=== PATIENT | male | born 1990 | race Caucasian/White ===

== ENCOUNTER 2018-01-30 07:40 | Emergency (ER) | payer BC ==
--- NOTE | 2018-01-30 07:47 | ER Report ---
History and Physical Time Seen By MD: 07:47 HPI/ROS CHIEF COMPLAINT: Dental pain HISTORY OF PRESENT ILLNESS: Left 1st mandibular molar pain. She was seen by a dentist earlier this week for dental pain. Has an infected tooth that needs to be removed which is now scheduled for this coming Thursday. Patient had been doing well on Motrin and tramadol and penicillin until today now having severe pain in the he is requesting a dental block. Allergies: Coded Allergies: No Known Drug Allergies (Unverified , 01/30/18) Home Meds Active Scripts Hydrocodone Bit/Acetaminophen (HYDROCODON-ACETAMINOPHEN 5-325) 1 Each Tablet, 1- 2 EACH PO Q4-6H Y for PAIN, #15 TAB 0 Refills TAKE ONE TABLET BY MOUTH EVERY 4-6 HOURS NEEDED FOR PAIN Prov:GISELLE KAISER MD 01/30/18 Reported Medications Tramadol Hcl (TRAMADOL HCL) 50 Mg Tablet, 1-2 TAB PO Q8-12H 01/30/18 Penicillin V Potassium 500 Mg Tab (PENICILLIN V POTASSIUM 500 MG TAB) 500 Mg Tablet, Q6H 01/30/18 Past Medical/Surgical History Noncontributory Constitutional Vital Sign - Last 24 Hours 01/30/18 01/30/18 07:40 08:06 Temp 97.5 Pulse 87 80 Resp 16 16 B/P (MAP) 151/94 150/87 (108) Pulse Ox 94 95 O2 Delivery Room Air Room Air Physical Exam General Appearance: Alert, no distress. ENT, Mouth: Ears: Tympanic membranes are normal. Nose: No bleeding. Mouth: Mucous membranes are moist. Throat: No erythema or exudates there is no tonsillar hypertrophy and uvula is midline. Teeth/gums: No evidence of dental abscess. Medical Decision Making ED Course/Re-evaluation ED Course 01/30/2018 8:06:14 am a left inferior alveolar dental block was performed using 2 mL of 0.5% bupivicaine. Decision to Disposition Date: Jan 30, 2018 Decision to Disposition Time: 08:06 Depart Departure Latest Vital Signs Vital Signs Date Time Temp Pulse Resp B/P (MAP) Pulse Ox O2 Delivery O2 Flow Rate FiO2 01/30/18 08:06 80 16 150/87 (108) 95 Room Air 01/30/18 07:40 97.5 Impression: Primary Impression: Pain, dental Condition: Improved Disposition: HOME OR SELF-CARE New Scripts Oxycodone Hcl/Acetaminophen (PERCOCET 5-325 MG TABLET) 1 Each Tablet 1-2 EACH PO Q6H for PAIN, #15 TAB 0 Refills Prov: GISELLE KAISER MD 01/30/18 Patient Instructions: Toothache (ED) Additional Instructions: Continue penicillin as directed Follow up with your dentist this Thursday for dental extraction Discontinue use of tramadol Use Lortab in place of tramadol for pain GISELLE KAISER MD Jan 30, 2018 07:47
[2018-01-30] MEDS ORDERED: TRAM-420 PO (07:50)
[2018-01-30] MEDS ORDERED: PENI-24 (07:50)
[2018-01-30 08:06] VITALS: BP 150/87
[2018-01-30] MEDS ORDERED: LOR5/325 PO (08:07)
[2018-01-30] MEDS ORDERED: OXYC-865 PO (08:23)
== END 2018-01-30 08:20 | disposition home or self-care (01) ==
LOC: ER 07:47
DX: K08.89 Other specified disorders of teeth and supporting structures (principal)
CPT/HCPCS: 99282

== ENCOUNTER 2018-02-01 17:58 | Emergency (ER) | payer BC ==
[~2018-02-01 17:58] MED LIST: LOR5/325 PO; OXYC-865 PO; PENI-24; TRAM-420 PO
[2018-02-01 18:02] VITALS: BP 153/94
--- NOTE | 2018-02-01 18:12 | ER Report ---
History and Physical Time Seen By MD: 18:10 Hx. of Stated Complaint: pt reports dental pain. appt moved to tomorrow at 1030, pt reports dental block was best HPI/ROS CHIEF COMPLAINT: Dental pain HISTORY OF PRESENT ILLNESS: This is a 27-year-old male who presents to the emergency department for dental pain. Patient was seen here last Thursday for dental pain and was given a dental block. Patient did have an appointment with his dentist today however they canceled and the pain returned this afternoon. Patient states he called his dentist they did get him a follow-up appointment next week he called again and he was upset about the cancellation today and they did manage to squeeze him in tomorrow for a root canal. Patient states he just wants a dental block again. Patient's saying that it is the 1st molar on the lower left side. He had a crown that cracked and now is infected. Patient denies aches, chills, nausea, vomiting, diarrhea, chest pain, shortness of breath. REVIEW OF SYSTEMS: Respiratory: No cough, no dyspnea. Cardiovascular: No chest pain, no palpitations. Gastrointestinal: No vomiting, no abdominal pain. Musculoskeletal: No back pain. Dental: As above. Allergies: Coded Allergies: No Known Drug Allergies (Unverified , 02/01/18) Home Meds Active Scripts Oxycodone Hcl/Acetaminophen (PERCOCET 5-325 MG TABLET) 1 Each Tablet, 1-2 EACH PO Q6H for PAIN, #15 TAB 0 Refills Prov:GISELLE KASIER MD 01/30/18 Reported Medications Penicillin V Potassium 500 Mg Tab (PENICILLIN V POTASSIUM 500 MG TAB) 500 Mg Tablet, Q6H 01/30/18 Discontinued Reported Medications Tramadol Hcl (TRAMADOL HCL) 50 Mg Tablet, 1-2 TAB PO Q8-12H 01/30/18 Discontinued Scripts Hydrocodone Bit/Acetaminophen (HYDROCODON-ACETAMINOPHEN 5-325) 1 Each Tablet, 1- 2 EACH PO Q4-6H Y for PAIN, #15 TAB 0 Refills TAKE ONE TABLET BY MOUTH EVERY 4-6 HOURS NEEDED FOR PAIN Prov:GISELLE KAISER MD 01/30/18 Past Medical/Surgical History Patient has a past medical and surgical history of hypertension, no medications , root canal. Reviewed Nurses Notes: Yes Constitutional Vital Sign - Last 24 Hours 02/01/18 18:02 Temp 98.9 Pulse 76 Resp 16 B/P (MAP) 153/94 Pulse Ox 93 O2 Delivery Room Air Physical Exam General Appearance: The patient is alert, has no immediate need for airway protection and no current signs of toxicity. Eyes: Pupils equal and round no injection. Dental: No obvious dental fracture, caries or poor dentition. Patient does have fillings noted. No inflammation along the gumline. Respiratory: Chest is non tender, lungs are clear to auscultation. Cardiac: regular rate and rhythm, no murmurs, clicks or rubs. Gastrointestinal: Abdomen is soft and non tender, no masses, bowel sounds normal. Musculoskeletal: Neck: Neck is supple and non tender. Extremities have full range of motion and are non tender. Skin: No rashes or lesions. DIFFERENTIAL DIAGNOSIS: After history and physical exam differential diagnosis was considered for dental infection and dental abscess. Medical Decision Making ED Course/Re-evaluation ED Course The patient was admitted to room. A history and physical were obtained. Frontal diagnoses were considered. After examination of the patient and discussing his follow-up dental appointment we elected to go ahead and do a dental block. I did go ahead and do an inferior alveolar nerve block using 1ml of 0.5% bupivacaine. The patient tolerated well. Patient does have a follow-up appointment tomorrow with his dentist for a root canal. Patient had no other questions or concerns at this time and was discharged home. Patient was in agreement with his care. Decision to Disposition Date: Feb 01, 2018 Decision to Disposition Time: 19:22 Depart Departure Latest Vital Signs Vital Signs Date Time Temp Pulse Resp B/P (MAP) Pulse Ox O2 Delivery O2 Flow Rate FiO2 02/01/18 18:02 98.9 76 16 153/94 93 Room Air Impression: Primary Impression: Pain, dental Condition: Improved Disposition: HOME OR SELF-CARE Referrals: DEONTE YANG MD (PCP) Patient Instructions: Dental Caries (ED) Additional Instructions: Drink plenty of fluids. Get plenty of rest. Follow-up with your dentist tomorrow as scheduled. Follow-up with your primary care provider as needed. May return to the emergency department for any other concerns or worsening symptoms. VETO MARSHALL [employer] Feb 01, 2018 18:12
== END 2018-02-01 19:36 | disposition home or self-care (01) ==
LOC: ER 18:19
DX: K08.89 Other specified disorders of teeth and supporting structures (principal)
CPT/HCPCS: 64400; 99282; D9110

== ENCOUNTER → 2018-04-03 | Outpatient (CLI) | payer BC | LOC: RESP 20:59 | PROVIDERS: ATTEND Family Medicine | DX: Z00.00 Encounter for general adult medical examination without abnormal findings (principal); R40.0 Somnolence; G47.33 Obstructive sleep apnea (adult) (pediatric); G47.36 Sleep related hypoventilation in conditions classified elsewhere; E66.9 Obesity, unspecified ==

== ENCOUNTER 2018-07-25 17:06 | Emergency (ER) | payer BC ==
--- NOTE | 2018-07-25 17:12 | ER Report ---
History and Physical Time Seen By MD: 17:12 HPI/ROS CHIEF COMPLAINT: Shortness of breath HISTORY OF PRESENT ILLNESS: 28-year-old male patient presents to emergency room with complaint of shortness of breath. Patient states that this started mayi roximately one hour prior to arrival in the emergency room. Patient states that there is nothing seems with shortness breath better or worse. Patient states that he is in the process of quitting smoking. He states that he started Chantix this morning. He states that when this started he was not actively doing anything, but was lying on the bed watching TV. Patient states there is nothing seems to make the shortness of breath better or worse. He has not taken any medication for this. REVIEW OF SYSTEMS: Respiratory: As noted above Cardiovascular: No chest pain, no palpitations. Gastrointestinal: No vomiting, no abdominal pain. Musculoskeletal: No back pain. Allergies: Coded Allergies: No Known Drug Allergies (Unverified , 07/25/18) Home Meds Reported Medications Varenicline Tartrate (CHANTIX) 0.5 Mg Tab, 0.5 MG PO QDAY, TAB 07/25/18 Losartan Potassium (LOSARTAN POTASSIUM) 25 Mg Tablet, 25 MG PO QDAY 07/25/18 Discontinued Reported Medications Penicillin V Potassium 500 Mg Tab (PENICILLIN V POTASSIUM 500 MG TAB) 500 Mg Tablet, Q6H 01/30/18 Discontinued Scripts Oxycodone Hcl/Acetaminophen (PERCOCET 5-325 MG TABLET) 1 Each Tablet, 1-2 EACH PO Q6H for PAIN, #15 TAB 0 Refills Prov:GISELLE KAISER MD 01/30/18 Past Medical/Surgical History Patient has a past medical history of hypertension, sleep apnea. Patient denies any surgical history. Reviewed Nurses Notes: Yes Constitutional Vital Sign - Last 24 Hours 07/25/18 07/25/18 07/25/18 07/25/18 17:09 17:15 17:30 17:59 Temp 98.4 Pulse 98 102 92 Resp 24 14 19 B/P (MAP) 152/93 150/77 (101) 136/79 (98) Pulse Ox 100 99 100 O2 Delivery Room Air 07/25/18 07/25/18 07/25/18 07/25/18 18:00 18:15 18:20 18:30 Pulse 75 75 81 Resp 15 20 23 B/P (MAP) 134/88 (103) Pulse Ox 96 96 97 07/25/18 07/25/18 07/25/18 07/25/18 18:35 18:50 19:00 19:05 Pulse ??? 67 ??? Resp 12 B/P (MAP) 130/80 (97) Pulse Ox 93 Physical Exam General Appearance: The patient is alert, has no immediate need for airway protection and no current signs of toxicity. Respiratory: Chest is non tender, lungs are clear to auscultation. Cardiac: regular rate and rhythm Gastrointestinal: Abdomen is soft and non tender, no masses, bowel sounds normal. Musculoskeletal: Neck: Neck is supple and non tender. Extremities have full range of motion and are non tender. Skin: No rashes or lesions. DIFFERENTIAL DIAGNOSIS: After history and physical exam differential diagnosis was considered for shortness of breath including but not limited to pulmonary infectious process, COPD, asthma, pulmonary embolus and congestive heart failure. Included in the differential is anxiety. Medical Decision Making Data Points Result Diagram: 07/25/18 1716 07/25/18 1716 Laboratory Hematology Test 07/25/18 17:16 Red Blood Count 5.55 M/uL (4.00-5.60) Mean Corpuscular Volume 84.7 fL (80.0-96.0) Mean Corpuscular Hemoglobin 28.8 pg (26.0-33.0) Mean Corpuscular Hemoglobin Concent 34.0 g/dL (32.0-36.0) Red Cell Distribution Width 13.6 % (11.5-14.5) Mean Platelet Volume 9.8 fL (7.2-11.1) Neutrophils (%) (Auto) 51.9 % (39.4-72.5) Lymphocytes (%) (Auto) 32.4 % (17.6-49.6) Monocytes (%) (Auto) 7.6 % (4.1-12.4) Eosinophils (%) (Auto) 5.6 % (0.4-6.7) Basophils (%) (Auto) 2.5 % (0.3-1.4) Nucleated RBC Relative Count (auto) 0.0 /100WBC Neutrophils # (Auto) 6.8 K/uL (2.0-7.4) Lymphocytes # (Auto) 4.2 K/uL (1.3-3.6) Monocytes # (Auto) 1.0 K/uL (0.3-1.0) Eosinophils # (Auto) 0.7 K/uL (0.0-0.5) Basophils # (Auto) 0.3 K/uL (0.0-0.1) Nucleated RBC Absolute Count (auto) 0.00 K/uL Sodium Level 140 mmol/L (137-145) Potassium Level 3.1 mmol/L (3.5-5.0) Chloride Level 103 mmol/L (98-107) Carbon Dioxide Level 20 mmol/L (22-30) Blood Urea Nitrogen 14 mg/dl (9-21) Creatinine 0.80 mg/dl (0.66-1.25) Glomerular Filtration Rate Calc > 60.0 Random Glucose 114 mg/dl (75-110) Calcium Level 9.3 mg/dl (8.4-10.2) Total Bilirubin 0.5 mg/dl (0.2-1.3) Aspartate Amino Transf (AST/SGOT) 40 U/L (0-35) Alanine Aminotransferase (ALT/SGPT) 66 U/L (0-56) Alkaline Phosphatase 58 U/L (0-126) Troponin I < 0.012 ng/ml B-Type Natriuretic Peptide 22 pg/ml (0-100) Total Protein 8.1 g/dl (6.3-8.2) Albumin 4.7 g/dl (3.5-5.0) Chemistry Test 07/25/18 17:16 White Blood Count 13.1 k/uL (4.5-11.0) Red Blood Count 5.55 M/uL (4.00-5.60) Hemoglobin 16.0 g/dL (14.0-18.0) Hematocrit 47.0 % (42.0-52.0) Mean Corpuscular Volume 84.7 fL (80.0-96.0) Mean Corpuscular Hemoglobin 28.8 pg (26.0-33.0) Mean Corpuscular Hemoglobin Concent 34.0 g/dL (32.0-36.0) Red Cell Distribution Width 13.6 % (11.5-14.5) Platelet Count 230 K/uL (150-450) Mean Platelet Volume 9.8 fL (7.2-11.1) Neutrophils (%) (Auto) 51.9 % (39.4-72.5) Lymphocytes (%) (Auto) 32.4 % (17.6-49.6) Monocytes (%) (Auto) 7.6 % (4.1-12.4) Eosinophils (%) (Auto) 5.6 % (0.4-6.7) Basophils (%) (Auto) 2.5 % (0.3-1.4) Nucleated RBC Relative Count (auto) 0.0 /100WBC Neutrophils # (Auto) 6.8 K/uL (2.0-7.4) Lymphocytes # (Auto) 4.2 K/uL (1.3-3.6) Monocytes # (Auto) 1.0 K/uL (0.3-1.0) Eosinophils # (Auto) 0.7 K/uL (0.0-0.5) Basophils # (Auto) 0.3 K/uL (0.0-0.1) Nucleated RBC Absolute Count (auto) 0.00 K/uL Glomerular Filtration Rate Calc > 60.0 Calcium Level 9.3 mg/dl (8.4-10.2) Total Bilirubin 0.5 mg/dl (0.2-1.3) Aspartate Amino Transf (AST/SGOT) 40 U/L (0-35) Alanine Aminotransferase (ALT/SGPT) 66 U/L (0-56) Alkaline Phosphatase 58 U/L (0-126) Troponin I < 0.012 ng/ml B-Type Natriuretic Peptide 22 pg/ml (0-100) Total Protein 8.1 g/dl (6.3-8.2) Albumin 4.7 g/dl (3.5-5.0) EKG/Imaging Imaging ABDOMEN AP AND ERECT/DECUB INDICATION: Abdominal tenderness. COMPARISON: None available FINDINGS: Some stool seen throughout colon. Bowel gas pattern is nonobstructed and nondilated. Abdominal soft tissues are grossly normal without suspicious lucencies or abnormal calcifications. Lung bases are clear. No acute bony abnormality. IMPRESSION: Unremarkable exam of the abdomen. Report Dictated By: Kike Palafox at 07/25/2018 6:15 PM Report E-Signed By: Kike Palafox at 07/25/2018 6:16 PM 2 VIEWS CHEST INDICATION: Respiratory distress. COMPARISON: None available FINDINGS: Cardiomediastinal silhouette and pulmonary vessels within normal limits. There is no focal infiltrate or lobar consolidation. There is no pneumothorax or pleural effusion. No nodule. Upper abdomen is unremarkable. Mild eventration right hemidiaphragm. No acute bony abnormality. IMPRESSION: 1. No acute cardiopulmonary process. Report Dictated By: Kike Palafox at 07/25/2018 6:14 PM Report E-Signed By: Kike Palafox at 07/25/2018 6:15 PM ED Course/Re-evaluation ED Course Patient was admitted to an exam room, history and physical were obtained. Differential diagnoses were considered. On examination lungs are clear, heart is regular, abdomen is soft and tender in the epigastric region. A CBC, CMP, troponin, EKG, chest x-ray, BNP were done. The labs were unremarkable. Chest x- ray showed no acute cardiopulmonary processes, acute abdominal x-ray was done which was also negative. I discussed the findings with the patient. Patient was given a GI cocktail which he states did seem to help with his discomfort a little bit. We will go ahead and discharge patient home at this time. He is follow-up with his primary care provider. He is return to emergency room if condition worsens. Patient verbalized understanding and agreement with plan. Decision to Disposition Date: Jul 25, 2018 Decision to Disposition Time: 19:11 Depart Departure Latest Vital Signs Vital Signs Date Time Temp Pulse Resp B/P (MAP) Pulse Ox O2 Delivery O2 Flow Rate FiO2 07/25/18 19:05 ??? 07/25/18 19:00 130/80 (97) 07/25/18 18:50 12 93 07/25/18 17:09 98.4 Room Air Impression: Primary Impression: Shortness of breath Additional Impression: Anxiety Condition: Improved Disposition: HOME OR SELF-CARE Referrals: DEONTE YANG MD (PCP) Patient Instructions: Anxiety (ED) Additional Instructions: Increase fluid intake. Get plenty of rest. Follow up with Dr. Yang in the next week. Limit Caffeine intake. Return to the ER if condition worsens. Problem Qualifiers OLGA LIDIA PERALTA Jul 25, 2018 17:12
[2018-07-25] MEDS ORDERED: NS(*) 0.9% 1000 ML BAG 1,000 ML IV ONE (17:17)
[2018-07-25] MEDS ORDERED: VAR05PT PO (17:17)
[2018-07-25] MEDS ORDERED: LOSA25TA52 PO (17:17)
[2018-07-25 17:30] LABS: PLATELET COUNT, AUTOMATED 230 K/uL (150-450)
--- NOTE | 2018-07-25 18:11 | EKG ---
FACILITY: [facility] PATIENT NAME: MARVA MEJÍA : [id number] MR: [id number] V: [id number] EXAM DATE: ORDERING PHYSICIAN: OLGA LIDIA PERALTA TECHNOLOGIST: COSTA Vega Reason : SOB Blood Pressure : / mmHG Vent. Rate : 097 BPM Atrial Rate : 097 BPM P-R Int : 160 ms QRS Dur : 122 ms QT Int : 364 ms P-R-T Axes : -10 003 021 degrees QTc Int : 462 ms Sinus rhythm Nonspecific intraventricular conduction delay Borderline ECG No previous ECGs available Confirmed by ANNEL SEALS [id number] on 07/26/2018 6:38:50 AM Referred By: FABIAN Confirmed By:ANNEL SEALS
--- NOTE | 2018-07-25 18:18 | RADIOLOGY IMAGING REPORT ---
FACILITY: [facility] [place] PATIENT NAME: Jalil Guaman : 1990 MR: [id number] V: [id number] EXAM DATE: ORDERING PHYSICIAN: OLGA LIDIA PERALTA TECHNOLOGIST: Location: [facility] [place] Patient: Jalil Guaman : 1990 Visit/Account:[id number] Date of Sevice: 07/25/2018 2 VIEWS CHEST INDICATION: Respiratory distress. COMPARISON: None available FINDINGS: Cardiomediastinal silhouette and pulmonary vessels within normal limits. There is no focal infiltrate or lobar consolidation. There is no pneumothorax or pleural effusion. No nodule. Upper abdomen is unremarkable. Mild eventration right hemidiaphragm. No acute bony abnormality. IMPRESSION: 1. No acute cardiopulmonary process. Report Dictated By: Kike Palafox at 07/25/2018 6:14 PM Report E-Signed By: Kike Palafox at 07/25/2018 6:15 PM WSN:[id number]
--- NOTE | 2018-07-25 18:20 | RADIOLOGY IMAGING REPORT ---
FACILITY: [facility] PATIENT NAME: Jalil Guaman : 1990 MR: [id number] V: [id number] EXAM DATE: ORDERING PHYSICIAN: OLGA LIDIA PERALTA TECHNOLOGIST: Location: [facility] Patient: Jalil Guaman : 1990 Visit/Account:[id number] Date of Sevice: 07/25/2018 ABDOMEN AP AND ERECT/DECUB INDICATION: Abdominal tenderness. COMPARISON: None available FINDINGS: Some stool seen throughout colon. Bowel gas pattern is nonobstructed and nondilated. Abdo janelle soft tissues are grossly normal without suspicious lucencies or abnormal calcifications. Lung b ases are clear. No acute bony abnormality. IMPRESSION: Unremarkable exam of the abdomen. Report Dictated By: Kike Palafox at 07/25/2018 6:15 PM Report E-Signed By: Kike Palafox at 07/25/2018 6:16 PM WSN:[id number]
[2018-07-25] MEDS ORDERED: LIDOCAINE 2% VISC SLN 15ML UDC PO ONE (18:40)
[2018-07-25] MEDS ORDERED: MAG HYD/AL HYD/SIMETH 30ML UDC PO ONE (18:40)
[2018-07-25 19:00] VITALS: BP 130/80
== END 2018-07-25 19:17 | disposition home or self-care (01) ==
LOC: ER 17:21
DX: R06.02 Shortness of breath (principal); F41.9 Anxiety disorder, unspecified
CPT/HCPCS: 71046; 74019; 83880; 84484; 85025; 93005; 96360; 96361; 99284; J7030; 82040; 82247; 82310; 82374; 82435; 82565; 82947; 84075; 84132; 84155; 84295; 84450; 84460; 84520